=== PATIENT | male | born 1930 | race Caucasian/White ===

== ENCOUNTER 2016-06-13 04:17 | Inpatient (IN) | payer OTHER ==
[2016-06-13] MEDS ORDERED: NS 1,000 ML IV ONE (04:19)
--- NOTE | 2016-06-13 04:24 | EDPHY ---
H & P HPI/ROS: HPI CHIEF COMPLAINT: Stroke alert by EMS HISTORY OF PRESENT ILLNESS: This patient 85-year-old male significant history of AFib, hypertension, on Coumadin, presents emergency room at 4:15 a.m. in the morning for stroke alert. According to EMS his white for woke up noticing that he was not acting normal she noticed that he had a facial droop was not really responding to her and right-sided weakness she called 911. According to EMS the patient was last seen normal at 8:30 p.m. since that time she has not seen in noticed approximately 15 minutes ago that he was not normal. Upon arrival here to the emergency room this patient has an obvious right-sided weakness, left-sided gave his preference, and left-sided facial droop. Upon arrival here in emergency room the patient's NIH stroke scale is 18 The history is somewhat limited at this time history comes from EMS however the patient is aphasic and cannot participate in history. Past Medical History: Hypertension, AFib, on Coumadin, CVA Past Surgical History: Unknown at this time Social History: Lives locally Family History: ROS REVIEW OF SYSTEMS: A comprehensive 10 point review of systems is otherwise negative aside from elements mentioned in the history of present illness. Exam Constitutional triage nursing summary reviewed, vital signs reviewed, awake/ alert. left-sided gaze preference, Eyes normal conjunctivae and sclera, EOMI, PERRLA. HENT normal inspection, atraumatic, moist mucus membranes, no epistaxis, neck supple/ no meningismus, no raccoon eyes. Respiratory clear to auscultation bilaterally, normal breath sounds, no respiratory distress, no wheezing. Cardiovascular rate normal, regular rhythm, no murmur, no edema, distal pulses normal. Gastrointestinal soft, non-tender, no rebound, no guarding, normal bowel sounds, no distension, no pulsatile mass. Genitourinary no CVA tenderness. Musculoskeletal no midline vertebral tenderness, full range of motion, no calf swelling, no tenderness of extremities, no meningismus, good pulses, neurovascularly intact. Skin pink, warm, & dry, no rash, skin atraumatic. Neurologic neurological exam shows that he is awake, he has a left-sided gaze preference, left-sided facial droop, right-sided hemiparesis upper and lower extremity paresis Psychiatric normal mood/affect. Heme/Lymph/Immune no lymphadenopathy. Differential Diagnosis: This includes but is not limited to in a particular order, MCA stroke, acute stroke, intraparenchymal bleed, seizure Medical Decision Making: This patient will will go to CT to have a CT scan of his head to rule out significant intraparenchymal bleed this patient is most likely not a tPA candidate due to him being on Coumadin, and last seen normal at 830PM this is outside the window of TPA. I will touch base with Neurology. Re-evaluation: 0437: CT scan of the head without IV contrast The results of the study are multiple strokes visualize, multiple watershed injuries, no acute bleed or visualization of acute stroke at this time. The study was read by Dr. Cerna. I viewed the images myself on the PACS system. 0437: Patient re-evaluated this time still has right-sided deficits, left- sided facial droop. The has showed up in the ER at this time she does tell me that he was last seen normal at 8:30 p.m. he is on Coumadin. she noticed that he was acting abnormal due to abnormal respirations approximately half an hour ago. That is what prompted to wake her up and evaluate him and called 911. 0452: I spoke with [facility] Dr. Anisa Beltrán, she feels that this patient should have a CT angiogram head and neck if the family wants to be aggressive with care. As it may be a large vessel occlusion. I did speak at length with the at bedside she is unsure if she wants to be aggressive in his care she is unsure if she wants him transferred to [facility]. She would like to speak with the neurologist I told her that we will proceed with a CT angiogram head and neck to see if there is a large vessel occlusion and I will have Neurology speak with her. She is agreeable to this EKG interpretation by me on record in [employer] system. Impression time of EKG 4:43 a.m., this is AFib rate of [address] depression in lead V4 V5 V6 also V2 V3 right bundle branch block present. 0517: Family at bedside specifically is still deciding if she wants to go to [facility]. Patient is back from CT angiogram of his head and neck. Neurology from [place] Dr. Beltrán is talking to them. 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 0523: CT scan of the angiogram head and neck. The results of the study are shows a large occlusion left internal carotid artery to the left MCA base of it The study was read by Dr. Cerna I viewed the images myself on the PACS system. 0541: After a great discussion with the patient's family specifically the they decided to not undergo any aggressive treatment. They agree for admission he has a very large stroke. They do not want him transferred to [facility] they do not want any aggressive intervention of this large thrombotic stroke. They understand that by not having aggressive treatment of possible intra-arterial tPA that most likely given how big this stroke is he will have a bad outcome most likely this significant stroke leading to . They understand this. 0554: did speak with the hospitalist service Dr. Winslow agrees to admit this patient. Patient be admitted to a med/sx room/neuro. Per He is a DNR, no aggressive measures. Source: EMS Constitutional: Initial Vital Signs Temperature (C) 36.5 C 06/13/16 04:32 Heart Rate 79 06/13/16 04:32 Respiratory Rate 16 06/13/16 04:32 Blood Pressure 187/115 H 06/13/16 04:32 O2 Sat (%) 93 06/13/16 04:32 O2 Delivery Mode Nasal Cannula O2 (L/minute) 2 Allergies/Adverse Reactions: No Known Allergies Allergy (Unverified 06/13/16 04:43) Home Medications: Medication Instructions Recorded Ascorbic Acid [Vitamin C 500 mg 1,000 mg PO BID 06/13/16 (*)] Aspirin [Aspirin 81mg (*)] 81 mg PO DAILY 06/13/16 Atenolol [Tenormin 25 mg (*)] 25 mg PO HS 06/13/16 Atorvastatin Calcium [Lipitor 40 40 mg PO HS 06/13/16 mg (*)] Azelaic Acid [Finacea] 1 gm TP BID 06/13/16 Finasteride [Proscar 5 MG (*)] 5 mg PO HS 06/13/16 Glucosamine/Chondroitin 1 each PO BID 06/13/16 [Glucosamine/Chondroitin (*)] Isosorbide Mononitrate [Isosorbide 30 mg PO DAILY 06/13/16 Mononitrate 20 mg (*)] Lisinopril [Zestril 20 mg (*)] 20 mg PO DAILY 06/13/16 Nitroglycerin [Nitrostat 0.4 mg 0.4 mg SL Q5M PRN 06/13/16 (*)] Omeprazole [Prilosec 20 mg] 40 mg PO DAILY 06/13/16 Warfarin Sodium [Coumadin 2.5MG 2.5 mg PO DAILY16 06/13/16 (*)] traZODone [traZODONE 50MG (*)] 50 mg PO HS 06/13/16 Medical Decision Making - Data Points Laboratory Results: Laboratory Results 06/13/16 04:35 06/13/16 04:35 Medications Given: Discontinued Medications Sodium Chloride (Ns) 1,000 mls @ 500 mls/hr IV EDNOW ONE Stop: 06/13/16 06:18 Last Admin: 06/13/16 04:47 Dose: 1,000 mls Departure - Departure Disposition: [facility] Inpatient Acute Clinical Impression: Acute ischemic stroke Condition: Critical
[2016-06-13] MEDS ORDERED: IOPAMIDOL (ISOVUE 370) 100 ML BTL IV ONE (04:28)
--- NOTE | 2016-06-13 04:47 | CPEKG ---
Heart Rate: 80 RR Interval: 750 QRSD Interval: 138 QT Interval: 428 QTC Interval: 494 QRS Callao: 84 T Wave Callao: -36 EKG Severity - ABNORMAL ECG - EKG Impression: ATRIAL FIBRILLATION, V-RATE 66-90 EKG Impression: RIGHT BUNDLE BRANCH BLOCK EKG Impression: BORDERLINE ST DEPRESSION, LATERAL LEADS Electronically Signed By: Cleve Ribeiro 13-Jun-2016 06:53:10
[2016-06-13 04:51] LABS: % IMMATURE GRANULYOCYTES 0.7 % (0.0-1.1); ABSOLUTE IMMATURE GRANULOCYTES 0.08 10^3/uL (0.00-0.10); ADD DIFF? NO; ADD MORPH? NO; ADD SCAN? NO; ATYPICAL LYMPHOCYTE FLAG 0 (0-99); FRAGMENT RBC FLAG 0 (0-99); HEMATOCRIT 39.3 % (40.0-51.0); HEMOGLOBIN 13.7 g/dL (13.7-17.5); LEFT SHIFT FLG 0 (0-99); LIPEMIA HEMOLYSIS FLAG 90 (0-99); MEAN CELL HEMOGLOBIN 32.1 pg (27.9-34.1); MEAN CELL HEMOGLOBIN CONCENTR. 34.9 g/dL (32.4-36.7); PLATELET CLUMPS FLAG 0 (0-99); PLATELET COUNT 162 10^3/uL (150-400); RED BLOOD CELL COUNT 4.27 10^6/uL (4.40-6.38); RED CELL DISTRIBUTION WIDTH 13.9 % (11.5-15.2)
[2016-06-13 04:58] LABS: INR 2.08 (0.83-1.16); PROTIME(PATIENT) 23.5 SEC (12.0-15.0)
[2016-06-13 04:59] LABS: APTT 29.1 SEC (23.0-38.0)
[2016-06-13 05:05] LABS: ANION GAP 9 mEq/L (8-16); CALCIUM 9.1 mg/dL (8.5-10.4); CARBON DIOXIDE 20 mEq/l (22-31); CHLORIDE 99 mEq/L (97-110); CREATININE 0.9 mg/dL (0.7-1.3); GLOMERULAR FILTRATION RATE > 60; GLUCOSE 113 mg/dL (70-100); POTASSIUM 4.5 mEq/L (3.5-5.2); SODIUM 128 mEq/L (134-144)
[2016-06-13 05:16] LABS: TROPONIN I 0.015 ng/mL (0-0.034)
--- NOTE | 2016-06-13 06:19 | PDGENHP ---
History and Physical - Chief Complaint hemiparesis - History of Present Illness Patient is 85/M with CAD, HLD, HTN, Afib on coumadin who was brought in to the ED by EMS as a stroke alert for new onset R hemiparesis. History obtained from patient's . Patient was last seen well at around 830pm, when he and his went to bed. At approximately 400am, patient's heard him gurgling/ having difficulty breathing, so she went into his room. She found pt unresponsive, unable to open his eyes, move his R side and with a significant R facial droop. She immediately called EMS and he was brought in to the ED. She denies any recent fevers/chills, SO, dizziness, CP, palpitations, abd pain, n/v/ d. Yesterday, patient was reported to be in his usual state of health, independent in all ADLs. On arrival to the ED patient was afebrile, hypertensive. His exam was significant for expressive aphasia, R hemiparesis and L facial droop. CT head did not reveal acute bleed. [facility] was consulted, patient was deemed not a tPA candidate due to arrival outside the window and patient on chronic coumadin. CT angio head/neck was then obtained and revealed complete L ICA occlusion with acute L M1/M2 filling defects. Family discussion by the ED physician indicated that they understood the severity of his acute infarct, the poor prognosis this portends and opted to avoid any aggressive or invasive treatments. History Information - Allergies/Home Medication List Allergies/Adverse Reactions: No Known Allergies Allergy (Unverified 06/13/16 04:43) Home Medications: Ascorbic Acid 06/13/16 [Last Taken Unknown] Aspirin 81mg (*) 06/13/16 [Last Taken Unknown] Atenolol 06/13/16 [Last Taken Unknown] Atorvastatin Calcium 06/13/16 [Last Taken Unknown] Azelaic Acid 06/13/16 [Last Taken Unknown] Finasteride 06/13/16 [Last Taken Unknown] Glucosamine 06/13/16 [Last Taken Unknown] Isosorbide Mononitrate 06/13/16 [Last Taken Unknown] Lisinopril 06/13/16 [Last Taken Unknown] Nitroglycerin 06/13/16 [Last Taken Unknown] Omeprazole 06/13/16 [Last Taken Unknown] Warfarin Sodium 06/13/16 [Last Taken Unknown] traZODone 06/13/16 [Last Taken Unknown] I have personally reviewed and updated: family history, medical history, social history, surgical history - Past Medical History Additional medical history: atrial fibrillation. HTN. HLD. CAD s/p PCI x 1. BPH. GERD. OA - Surgical History Reports: hernia repair - Family History Positive for: non-pertinent - Social History Smoking Status: Former smoker (distant history of smoking) Alcohol Use: None Drug Use: None Additional social history: Patient lives with , was completely independent in all ADLs. Review of Systems ROS: 10pt was reviewed & negative except for what was stated in HPI & below Physical Exam Temp Pulse Resp BP Pulse Ox 36.5 C 84 16 183/99 H 99 06/13/16 04:32 06/13/16 05:00 06/13/16 05:00 06/13/16 05:00 06/13/16 05:00 Constitutional: other (hemiparesis, aphasic) Eyes: anicteric sclera Ears, Nose, Mouth, Throat: moist mucous membranes, hearing normal, ears appear normal, no oral mucosal ulcers Cardiovascular: regular rate and rhythym, no murmur, rub, or gallop, pulses symmetric bilaterally, No JVD, No edema Peripheral Pulses: 1+: dorsalis-pedis (R), dorsalis-pedis (L) Respiratory: rhonchi (b/l) Gastrointestinal: soft, non-tender abdomen, no palpable masses, tenderness Genitourinary: no bladder fullness, no bladder tenderness Skin: other (chronic arterial insufficiency skin changes in b/l lower extremities) Neurologic: other (complete expressive aphasia, able to follow simple commands and track with b/l EOM; L facial droop; R strength 2/5 in upper and lower extremities with upward going babinski; L UE LE strength intact) Lab Data & Imaging Review 06/13/16 04:35 06/13/16 04:35 WBC 11.14 10^3/uL (3.80-9.50) H 06/13/16 04:35 RBC 4.27 10^6/uL (4.40-6.38) L 06/13/16 04:35 Hgb 13.7 g/dL (13.7-17.5) 06/13/16 04:35 POC Hgb 15.0 gm/dL (14.5-17.3) 06/13/16 04:31 Hct 39.3 % (40.0-51.0) L 06/13/16 04:35 POC Hct 44 % (42.8-50.6) 06/13/16 04:31 MCV 92.0 fL (81.5-99.8) 06/13/16 04:35 MCH 32.1 pg (27.9-34.1) 06/13/16 04:35 MCHC 34.9 g/dL (32.4-36.7) 06/13/16 04:35 RDW 13.9 % (11.5-15.2) 06/13/16 04:35 Plt Count 162 10^3/uL (150-400) 06/13/16 04:35 MPV 10.0 fL (8.7-11.7) 06/13/16 04:35 Neut % (Auto) 75.1 % (39.3-74.2) H 06/13/16 04:35 Lymph % (Auto) 12.7 % (15.0-45.0) L 06/13/16 04:35 [place] % (Auto) 9.6 % (4.5-13.0) 06/13/16 04:35 Eos % (Auto) 1.5 % (0.6-7.6) 06/13/16 04:35 Baso % (Auto) 0.4 % (0.3-1.7) 06/13/16 04:35 Nucleat RBC Rel Count 0.0 % (0.0-0.2) 06/13/16 04:35 Absolute Neuts (auto) 8.35 10^3/uL (1.70-6.50) H 06/13/16 04:35 Absolute Lymphs (auto) 1.42 10^3/uL (1.00-3.00) 06/13/16 04:35 Absolute Monos (auto) 1.07 10^3/uL (0.30-0.80) H 06/13/16 04:35 Absolute Eos (auto) 0.17 10^3/uL (0.03-0.40) 06/13/16 04:35 Absolute Basos (auto) 0.05 10^3/uL (0.02-0.10) 06/13/16 04:35 Absolute Nucleated RBC 0.00 10^3/uL (0-0.01) 06/13/16 04:35 Immature Gran % 0.7 % (0.0-1.1) 06/13/16 04:35 Immature Gran # 0.08 10^3/uL (0.00-0.10) 06/13/16 04:35 PT 23.5 SEC (12.0-15.0) H 06/13/16 04:35 INR 2.08 (0.83-1.16) H 06/13/16 04:35 APTT 29.1 SEC (23.0-38.0) 06/13/16 04:35 POC Sodium 131 mEq/L (134-144) L 06/13/16 04:31 Sodium 128 mEq/L (134-144) L 06/13/16 04:35 POC Potassium 4.2 mEq/L (3.3-5.0) 06/13/16 04:31 Potassium 4.5 mEq/L (3.5-5.2) 06/13/16 04:35 POC Chloride 99 mEq/L (96-108) 06/13/16 04:31 Chloride 99 mEq/L (97-110) 06/13/16 04:35 Carbon Dioxide 20 mEq/l (22-31) L 06/13/16 04:35 Anion Gap 9 mEq/L (8-16) 06/13/16 04:35 POC BUN 22 mg/dL (7-23) 06/13/16 04:31 BUN 21 mg/dL (7-23) 06/13/16 04:35 Creatinine 0.9 mg/dL (0.7-1.3) 06/13/16 04:35 POC Creatinine 0.9 mg/dL (0.8-1.5) 06/13/16 04:31 Estimated GFR > 60 06/13/16 04:35 Glucose 113 mg/dL (70-100) H 06/13/16 04:35 POC Glucose 121 mg/dL (70-100) H 06/13/16 04:31 Calcium 9.1 mg/dL (8.5-10.4) 06/13/16 04:35 Troponin I 0.015 ng/mL (0-0.034) 06/13/16 04:35 Visualized and Interpreted Chest x-ray results: Yes Chest X-Ray results: no infiltrate, normal Visualized and Interpreted imaging results: Yes Interpretation: CT head: extensive atrophy and WM disease; no hemorrhage. CT angio head/necK: complete L ICA occlusion with acute M1/M2 occlusion Visualized and Interpreted EKG results: Yes EKG additional interpertation: atrial fib, rate controlled Assessment & Plan Assessment: Patient 85/M with Afib, HTN, CAD, HLD who presents with acute R hemiparesis, L facial droop and expressive aphasia, found to have acute L MCA occlusion, ischemic infarct. Plan: # acute CVA Patient with an extensive acute infarct with extensive deficits, arrived outside tPA window and is contraindicated due to on coumadin. Etiology is due to extensively occluded L ICA with acute extension to M1/M2 of L MCA. Family members ( and son) understand the extent of the deficits and the poor prognosis. They would not want any aggressive intervention, have refused NGT placement for med administration, refuse transfer to [facility] for intra-vessel tPA. Will place on aspiration precautions, manage symptoms. Family is still consider benefit of MRI or TTE. Will allow for permissive hypertension. # CAD/Afib/HTN/HLD HR stable, BP elevated, trop negative, EKG without ischemia. INR is currently therapeutic. Family is not inclined toward NGT placement for med administration. # dispo: admit to hospitalist service for > 2 MN stay # gen: NPO DVT ppx: on warfarin, therapeutic INR DNR/DNI, no aggressive interventions
--- NOTE | 2016-06-13 09:11 | CT ---
CT Brain (Without Contrast) History: Right-sided weakness in an 85-year-old male; CVA suspected. Patient has history of remote s trokes.. Technique: Axial computed tomographic images of the brain are obtained from the base to the vertex w ithout contrast. Images are obtained at 5 mm thickness and reformatted at 1.5 mm. Sagittal and lopez l reformations are performed and the study is reviewed at multiple window/level settings. Dose reduct ion techniques were utilized. Findings: Ventricles, cisterns, and sulci are widened consistent with atrophy. There is no hydroceph alus, midline shift/herniation, or epidural/subdural hematoma. No intraparenchymal hemorrhage or mass effect is identified. Hypodensities are noted in the periventricular and subcortical white matter bi laterally. Cortical low attenuation and encephalomalacia are seen in the right frontoparietal and the left parieto-occipital regions consistent with remote cortical ischemia. No definite acute cortical ischemia is seen, although the extent of white matter low attenuation does decrease sensitivity for s ubtle findings of early acute cortical ischemia. Cerebrovascular atherosclerosis is identified. Bone windows demonstrate no displaced fractures. Paranasal sinuses and mastoid air cells are clear. Impression: 1. Elderly brain with atrophy and probable white matter small vessel disease. 2. No definite acute cortical ischemia, although extensive white matter disease diminishes CT sensiti vity. There is CT angiography pending. 3. Negative for hemorrhage. The study was performed as an emergency on-call case and discussed by telephone with Dr. Cleve jacobs at 0440 hours. The final interpretation is concordant with the original communication.
[2016-06-13] MEDS: ASPIRIN RECTAL 300 MG SUPP PR SCH ×2 (10:14→11:52)
--- NOTE | 2016-06-13 10:43 | CT ---
CT Angiography Neck With Contrast CT Angiography Head With Contrast CT Neck Angiography Reason for Examination: Right-sided weakness; suspect CVA. Evaluate for vascular occlusion. Technique: Spiral acquisition was performed from the level of the thoracic inlet to the skull base du ring rapid intravenous administration of 85 mL of Isovue-370. This contrast volume was utilized for e valuation of the neck and head. Images were obtained at 0.6 mm thickness and reviewed on the workstat ion at multiple window/level settings. Sagittal and coronal reformations are performed. Also, a three -dimensional reformation is performed by the radiologist on the workstation. Dose reduction techniqu es were utilized. Findings: There is excellent arterial opacification. The anatomy of the aortic arch is normal. There is complete occlusion of the left internal carotid artery just distal to the carotid bifurcation asso ciated with dense carotid plaque formation at the origin of the left internal carotid artery. The ves shantel is occluded throughout its course to the level of the base of the brain. There is dense plaque fo rmation seen involving the right carotid bifurcation with probable borderline hemodynamically signifi cant stenosis. No areas of abnormal enhancement are seen and no vascular malformations are noted. CT Angiography of the Head With Attention to the [place] of [place]. Technique: A spiral acquisition was performed from the base of the brain to the vertex during rapid i ntravenous administration of 85 mL of Isovue-370. This contrast volume was utilized for evaluation o f the neck and head. Axial images are obtained at 0.6 mm thickness and the examination is reviewed on the workstation in multiple window/level settings. Sagittal and coronal reformats are performed and three-dimensional reformations are performed by the radiologist on the workstation. Dose reduction techniques were utilized. Findings: There is excellent arterial opacification. There is occlusion of the supraclinoid extension of the occluded left internal carotid artery. Additionally, there is nonfilling of the left M1 and M 2 segments of the left middle cerebral artery. There is filling of vessels in the sylvian fissure via collateral flow. IMPRESSION: 1. Occlusion of the left internal carotid artery from just above the level of the left carotid bifurc ation cephalad and involving the supraclinoid carotid as well as left middle cerebral artery. 2. Dense plaque formation and probable borderline hemodynamically significant stenosis of the right i nternal carotid artery. The study was performed as an emergency on-call case and discussed by telephone with Dr. Cleve emanuel at 0520 hours. The final interpretation is concordant with the original communication. Note: All stenoses are calculated using NASCET criteria.
--- NOTE | 2016-06-13 10:46 | DX ---
Portable AP Upright Chest June 13, 2016, 0440 Hours HISTORY: Cerebrovascular accident. FINDINGS: Pulmonary markings are diffusely mildly increased, suggesting prominent interlobular septa. Diagnostic considerations include pulmonary edema and interstitial fibrosis or other interstitial horace ng disease. Heart size is normal given the poor inspiratory depth. No pleural effusion. No pneumothor ax. IMPRESSION: Mildly prominent pulmonary markings. Recommend departmental PA and lateral chest radiogra phs.
--- NOTE | 2016-06-13 11:26 | ECHO ---
[id number] + + [address] : : [place] [address] : : [phone] + + Adult Echocardiographic Report + ---+ :Name: JAMES BARTH EStudy Date: 06/13/2016 08:59 AM : : Hospital Admission Number: [id number] Location: 342: :: 1930 Gender: Male Height: 69 in : :Age: 85 yrs Race: WH Weight: 160 lb : :Reason For Study: Eval for Embolic Source, Bubble Exam : : BSA: 1.9 meters2 : :History: Ischemic Stroke : + ---+ MMode/2D Measurements & Calculations IVSd: 0.76 cm LVIDd: 4.4 cm FS: 49.6 % Ao root diam: 3.6 cm LVPWd: 1.0 cm LVIDs: 2.2 cm EDV(Teich): 89.4 ml ACS: 1.7 cm ESV(Teich): 16.9 ml EF(Teich): 81.1 % Normal Measurement Values: + + :LVIDd (3.5-5.7cm) IVSd (0.6-1.1cm) LVPWd (0.6-1.1cm) Aortic Root (2.0-3.7cm)Left Atrium (1.5-4.0cm): :LV Vol(d) (76-115ml) LV Vol(s) (29-48ml) Ejec Fraction (50-65%)PV Albino (0.6- 1.2m/s) TV Albino (0.4-1.0m/s) : :MV E Albino (0.8-1.0m/s)MV A Albino (0.3-1.0m/s)LVOT Albino (0.7-1.2m/s) Asc Ao Albino ( 0.9-1.8m/s) : + + Doppler Measurements & Calculations MV E max albino: Ao V2 max: LV V1 max: PA V2 max: 88.8 cm/sec 122.2 cm/sec 96.3 cm/sec 112.7 cm/sec Ao max PG: LV V1 max PG: PA max P.0 mmHg 3.7 mmHg 5.1 mmHg TR max albino: 357.0 cm/sec TR max P.0 mmHg RAP systole: 5.0 mmHg RVSP(TR): 56.0 mmHg Left Ventricle The left ventricle is normal in size. There is normal left ventricular wall thickness. The left ventricular ejection fraction is normal. There is Doppler evidence for diastolic dysfunction. The thythm is atrial fibrillation. Ejection Fraction = 81%. No regional wall motion abnormalities noted. Right Ventricle The right ventricle is normal in size and function. Atria The left atrium is moderately dilated. The right atrium is moderately dilated. Injection of contrast documented no interatrial shunt. The interatrial septum is intact with no evidence for an atrial septal defect. Mitral Valve There is mild mitral annular calcification. There is no mitral valve stenosis. There is mild mitral regurgitation. Tricuspid Valve Normal tricuspid valve. There is mild to moderate tricuspid regurgitation. Right ventricular systolic pressure is 56mmHg. Aortic Valve Mild Aortic Valve Calcification. There is no aortic stenosis. There is no aortic insufficiency. Pulmonic Valve The pulmonic valve is normal in structure and function. There is no pulmonic valvular regurgitation. Great Vessels The aortic root is normal size. Pericardium/Pleural There is no pericardial effusion. Conclusion A complete two-dimensional transthoracic echocardiogram was performed (2D, M-mode, Doppler and color flow Doppler). The left ventricular ejection fraction is normal. There is Doppler evidence for diastolic dysfunction. The thythm is atrial fibrillation. Ejection Fraction = 81%. The left atrium is moderately dilated. The right atrium is moderately dilated. There is mild mitral annular calcification. There is mild mitral regurgitation. Injection of contrast documented no interatrial shunt. The interatrial septum is intact with no evidence for an atrial septal defect. There is mild to moderate tricuspid regurgitation. Right ventricular systolic pressure is 56mmHg. Mild Aortic Valve Calcification There is no pericardial effusion. Final Reading Physician: Danni Coleman signed on 06/13/2016 11:24 AM Ordering Physician: Cara Winslow Performed By: Eddie Loco, CS
[2016-06-13 12:30] LABS: TROPONIN I 0.016 ng/mL (0-0.034)
--- NOTE | 2016-06-13 12:46 | GCON ---
[f rep st] CONSULTATION NEUROLOGIC CONSULTATION. REFERRING PHYSICIAN: Cara Winslow MD HISTORY: The patient is an 85-year-old gentleman who I am asked to see in neurologic consultation re garding acute stroke. He was at a stable baseline when he went to bed last night around 8:30, and th en around 3:00 or 3:30 in the morning his heard him making sounds that sounded like he was gurgl ing a bit. She went and checked on him and she could immediately tell that something was wrong. He was very resistant to being rolled to his side, but he was noncommunicative. She called 911 and he w as brought to the emergency room with a stroke concern. When he came to the emergency department, he had a head CT that showed evidence of evolving infarctions in the right frontal region, as well as l eft parieto-occipital suspicious for watershed distributions. He had CT angiogram showing complete o cclusion of the left internal carotid artery extending into the middle cerebral artery M1 and M2 segm ents. There was a detailed discussion with the family about the situation and they chose to keep him at the hospital and provide comfort and support as opposed to transferring him to [facility] for any in tervention. The patient has been on the floor over the last few hours and I had a good discussion with all of his family this morning. His says that when he had his episode in March he went to [facility] and was suspected to have TIA. He had improved and really was about back to his baseline when this event occurred. She says he has made it clear that he would not want to live in a situati on like this and did not want any intubation or other procedures done to him should he ever get to [facility]. Therefore, they were wanting to do comfort measures only. The patient is currently not ab le to communicate effectively to provide any history, although he is able to hear my voice and follow commands, and I will detail the exam below. He has not been recently ill. REVIEW OF SYSTEMS: A 10-point review of systems is unremarkable except for the recent TIA. PAST MEDICAL HISTORY: He has a history of hypertension and atrial fibrillation for which he is on an ticoagulation, and his INR was therapeutic at 2 when he came to the hospital. He has history of james nary disease with stenting, BPH, reflux and osteoarthritis. History of hernia repair. FAMILY HISTORY: Noncontributory. SOCIAL HISTORY: He has a history of smoking in the distant past. No alcohol or drug use. He lived independently with his until this event. MEDICATIONS ON ADMISSION: Vitamins C, aspirin 81 mg daily, atenolol, atorvastatin, azelaic acid, fin asteride, glucosamine, isosorbide mononitrate, lisinopril, nitroglycerin, omeprazole, Coumadin and tr azodone. ALLERGIES: No known drug allergies. PHYSICAL EXAMINATION: VITAL SIGNS: The blood pressure when he initially presented to the emergency room at 4:30 a.m. was 187/115, and is now 156/93 with a pulse of 79, respirations 18, temperature 36. 9. GENERAL: He is a well-developed older man, lying in the bed with his eyes closed and a little bi t restless. EYES: Clear. NECK: Supple with no bruits or masses. CARDIAC: Regular rate and rhyth m. No murmur. EXTREMITIES: No cyanosis or edema. Pulses 2+. NEUROLOGIC: He is lethargic with ey es closed but will follow some commands. He attempts to open his eyes and can partially open his eye s on an unsustained basis. He will follow some of my commands to lift the left arm, actually could s tick up 2 fingers request in the left arm and wiggle his toes except on the right side. His language is completely absent with no vocalizations. I cannot reliably assess his memory. Concentration and attention are reduced. General fund of knowledge also cannot be assessed at this time. As mentione d, he can follow some basic commands and seems to understand some voice and seems to recognize family by their voices. Pupils are 1 mm and reactive. Visual crenshaw cannot be adequately assessed with hi s degree of altered awareness. There is a left gaze preference. For the most part, there are conjug ate eye movements. The fundi cannot be viewed due to a small aperture of his pupil. He has severe r ight lower facial weakness. He is nonverbal so I cannot assess his dysarthria. Decreased gag reflex . He does not protrude his tongue to command. There is no definitive weakness assessable at the lulu rnocleidomastoid or trapezius muscles. The motor examination reveals increased tone in the right upp er extremity and a little bit in the right lower extremity, with no spontaneous movements. There is some reflexive movement with a triple flexion response to stimulation of the right plantar surface. He has some relative hyperreflexia on the right. The power on the left side seems to be normal. The re is not a withdrawal response to pain or clear recognition of pain based on any clear grimace when I touch the right side. No ataxic movements in the left upper extremity. Right upper extremity is n ot moving at all. I directly reviewed his head CT and CT angiograms of the head and neck. As mentioned, head CT shows atrophy and white matter change, but there are areas of ischemia seen in the left parieto-occipital r egion as well as the right frontal lobe. The CT angiogram of the neck showed a complete occlusion in the left internal carotid artery just after the bifurcation, which extends into the middle cerebral artery up to M2. LABORATORY STUDIES: Showing white count of 11,000. INR of 2. Mild hyponatremia with sodium of 128. IMPRESSION: The patient has experienced an acute ischemic stroke due to occlusion of left internal c arotid artery presumably from an embolic source. Given the extent of clot present and has evidence o f ischemic changes in the right frontal lobe and left parieto-occipital region which may be old or ne w. The patient did have echocardiogram this morning showing good ejection fraction. No ASD document ed. There is atrial fibrillation present. The patient has suffered a severe stroke in the left carotid territory and has ischemic changes in th e right frontal lobe and left parieto-occipital which may represent subacute changes or be older than that. It is hard to know for sure. He had an apparent transient ischemic attack in March and wa s managed at [facility] where he is normally followed by [facility]. His current NIH stroke scale is 25. His prognosis is very poor for meaningful recovery. I agree with the family's decision for com fort measures at this point, and we will plan to refer her to [facility] for hospice care. I have had a discussion with Dr. Bree Field, who is the hospitalist currently covering. 55 minutes were spent in total unit time on his case. /[id number]/MODL
--- NOTE | 2016-06-13 16:46 | HOSPPROG ---
Hospitalist Progress Note Assessment/Plan: Pt new to my care today. Reviewed chart, imaging and discussed case with Neurologist. CVA of left ICA and M1, M2 distribution of left MCA - Possibly embolic in origin. NIH stroke scale 25. Pt unable to speak, eat or walk. Family declined option to transfer to [facility]. They will have a hospice consult today and continue to consider goals of care. Appreciate neurology consult. Prognosis is poor. DNR Objective: Vital Signs Temp Pulse Resp BP Pulse Ox 36.9 C 78 18 154/86 H 97 06/13/16 07:41 06/13/16 16:06 06/13/16 16:06 06/13/16 16:06 06/13/16 16:06 06/12/16 06/13/16 06/14/16 05:59 05:59 05:59 Intake Total 1000 Balance 1000 PT 23.5 SEC (12.0-15.0) H 06/13/16 04:35 INR 2.08 (0.83-1.16) H 06/13/16 04:35 ICD10 Worksheet Patient Problems: Problems Problem Status Diagnosed Acute ischemic stroke Acute
[2016-06-13 19:32] LABS: TROPONIN I 0.022 ng/mL (0-0.034)
[2016-06-14 05:48] LABS: CHOLESTEROL 92 mg/dL (140-220); CHOLESTEROL/HDL RATIO 1.84 RATIO (1.00-4.97); HIGH DENSITY LIPOPROTEIN 50 mg/dL (40-65); LDL/HDL RATIO 0.68 RATIO (1.00-3.64); LOW DENSITY LIPOPROTEIN 34 mg/dL (80-100); NON-HIGH DENSITY LIPOPROTEIN 42 mg/dL (90-129); TRIGLYCERIDE 44 mg/dL (40-150); VERY LOW DENSITY LIPOPROTEINS 8 mg/dL (8-25)
[2016-06-14] MEDS: NS 1,000 ML IV SCH ×2 (10:00→21:03)
[2016-06-14] MEDS: ASPIRIN RECTAL 300 MG SUPP PR SCH (10:20)
--- NOTE | 2016-06-14 17:52 | HOSPPROG ---
Hospitalist Progress Note Assessment/Plan: CVA of left ICA and M1, M2 distribution of left MCA - Possibly embolic in origin. NIH stroke scale 25. Pt unable to speak, eat or walk, though he is responsive. Family declined option to transfer to [place], which was recommended upon initial diagnosis. They had a hospice consult yesterday, but now having 2nd thoughts. She has considered a feeding tube. She wants him to continue on IVF hydration for now. Continue rectal ASA, prn tylenol. Palliative care consult requested today and very appreciative of Ju[place]'s help at the end of the day. Will set up PC conference for Friday to continue to address goals of care. Family arriving today. DNR Dispo TBD - possibly SNF for rehab vs hospice vs home with hospice Subjective: Pt responsive to verbal stimuli, but unable to speak. He has difficulty managing his secretions. Remains NPO. No fevers. Objective: Vital Signs Temp Pulse Resp BP Pulse Ox 37.3 C 81 20 168/88 H 97 06/14/16 16:00 06/14/16 16:00 06/14/16 16:00 06/14/16 16:00 06/14/16 16:00 06/13/16 06/14/16 06/15/16 05:59 05:59 05:59 Intake Total 1000 Output Total 300 Balance 700 PT 23.5 SEC (12.0-15.0) H 06/13/16 04:35 INR 2.08 (0.83-1.16) H 06/13/16 04:35 - Physical Exam Constitutional: no apparent distress Eyes: PERRL Cardiovascular: regular rate and rhythym Respiratory: no respiratory distress Skin: warm Neurologic: other (dense right sided hemiparesis and facial droop, aphasic) ICD10 Worksheet Patient Problems: Problems Problem Status Diagnosed Acute ischemic stroke Acute
[2016-06-14] MEDS: ACETAMINOPHEN 650 MG SUPP PR PRN (21:03)
[2016-06-15] MEDS: ACETAMINOPHEN 650 MG SUPP PR PRN ×3 (04:06→22:05)
[2016-06-15] MEDS: NS 1,000 ML IV SCH ×2 (09:32→22:06)
[2016-06-15] MEDS: ASPIRIN RECTAL 300 MG SUPP PR SCH (09:32)
--- NOTE | 2016-06-15 17:10 | HOSPPROG ---
Hospitalist Progress Note Assessment/Plan: CVA of left ICA and M1, M2 distribution of left MCA - Possibly embolic in origin. NIH stroke scale 25. Pt unable to speak, eat or walk, and is less responsive today. Family has processed all options, met with media marketing coordinator from palliative care team last night. , Donya, now confident in her decision to proceed with hospice. Will initiate comfort care at this time. wishes to continue IVF's one more day, to which I'm agreeable. DNR Dispo TBD - SNF on hospice, [facility] pt, CM working on options Subjective: Pt mostly unresponsive, has periods of more responsiveness. Objective: Vital Signs Temp Pulse Resp BP Pulse Ox 36.6 C 73 18 158/100 H 97 06/15/16 16:00 06/15/16 16:00 06/15/16 16:00 06/15/16 16:00 06/15/16 16:00 06/14/16 06/15/16 06/16/16 05:59 05:59 05:59 Intake Total 1000 1800 0 Output Total 300 Balance 700 1800 0 PT 23.5 SEC (12.0-15.0) H 06/13/16 04:35 INR 2.08 (0.83-1.16) H 06/13/16 04:35 - Physical Exam Cardiovascular: regular rate and rhythym Respiratory: no respiratory distress Neurologic: other (dense right hemiparesis and facial droop persist) ICD10 Worksheet Patient Problems: Problems Problem Status Diagnosed Acute ischemic stroke Acute
[2016-06-15] MEDS ORDERED: HALOPERIDOL LACT 5 MG/ML INJ IVP PRN (17:12)
[2016-06-15] MEDS ORDERED: GLYCOPYRROLATE 0.2 MG/1 ML VIAL IVP/IM PRN (17:12)
[2016-06-15] MEDS ORDERED: ONDANSETRON 4 MG/2 ML VIAL IVP PRN (17:12)
[2016-06-16] MEDS: ACETAMINOPHEN 650 MG SUPP PR PRN ×3 (04:48→17:06)
[2016-06-16] MEDS: ATROPINE 1% 5 ML OPHT.BTL SL PRN ×3 (10:00→21:03)
[2016-06-16] MEDS: morphINE 10 MG/0.5 ML UDSYR PO PRN (10:02)
[2016-06-16] MEDS: NS 1,000 ML IV SCH ×2 (10:19→21:01)
[2016-06-16] MEDS: LORazepam 2 MG/ML INJ IVP PRN ×2 (13:56→21:02)
--- NOTE | 2016-06-16 14:46 | HOSPPROG ---
Hospitalist Progress Note Assessment/Plan: CVA of left ICA and M1, M2 distribution of left MCA - Possibly embolic in origin. NIH stroke scale 25. Pt unable to speak, eat or walk, and is less responsive today. Family has processed all options, met with pharmacy care coordinator from palliative care team. , Donya, now confident in her decision to proceed with hospice. Now on comfort care. Will dc IVF's today. DNR Dispo TBD - SNF on hospice, [place] pt, CM working on options Subjective: Pt resting comfortably. Has had some coughing spells, grew agitated , given ativan. Appears peaceful now. Objective: Vital Signs Temp Pulse Resp BP Pulse Ox 37.3 C 87 14 160/89 H 90 L 06/16/16 08:00 06/16/16 08:00 06/16/16 08:00 06/16/16 08:00 06/16/16 08:00 06/15/16 06/16/16 06/17/16 05:59 05:59 05:59 Intake Total 1800 900 Balance 1800 900 PT 23.5 SEC (12.0-15.0) H 06/13/16 04:35 INR 2.08 (0.83-1.16) H 06/13/16 04:35 - Physical Exam Constitutional: no apparent distress Cardiovascular: regular rate and rhythym Respiratory: no respiratory distress Skin: warm ICD10 Worksheet Patient Problems: Problems Problem Status Diagnosed Acute ischemic stroke Acute
[2016-06-17] MEDS: ATROPINE 1% 5 ML OPHT.BTL SL PRN (03:31)
[2016-06-17] MEDS: LORazepam 2 MG/ML INJ IVP PRN ×2 (03:31→08:36)
--- NOTE | 2016-06-17 09:29 | HOSPPROG ---
Hospitalist Progress Note Assessment/Plan: CVA of left ICA and M1, M2 distribution of left MCA - Comfort care measures. Pt appears to be nearing end of life with some cheynes hall breathing, unresponsive. Will defer transfer to SNF today given declining status. DNR Dispo TBD - Cont comfort care, may pass away here. If stabilizes, will consider transfer to SNF for hospice tomorrow. Subjective: Pt unresponsive, cheynes-hall breathing. Having difficulty with secretions. Objective: Vital Signs Temp Pulse Resp BP Pulse Ox 37.3 C 85 16 163/95 H 93 06/17/16 08:00 06/17/16 08:00 06/17/16 08:00 06/17/16 08:00 06/17/16 08:00 06/16/16 06/17/16 06/18/16 05:59 05:59 05:59 Intake Total 900 900 Balance 900 900 PT 23.5 SEC (12.0-15.0) H 06/13/16 04:35 INR 2.08 (0.83-1.16) H 06/13/16 04:35 - Physical Exam Constitutional: no apparent distress Eyes: PERRL Ears, Nose, Mouth, Throat: moist mucous membranes Cardiovascular: regular rate and rhythym Respiratory: inspiratory crackles, bronchial breath sounds Skin: warm ICD10 Worksheet Patient Problems: Problems Problem Status Diagnosed Acute ischemic stroke Acute
[2016-06-17] MEDS: morphINE 10 MG/0.5 ML UDSYR PO PRN ×2 (11:15→16:52)
--- NOTE | 2016-06-17 12:26 | PDPCPN ---
Palliative Care Progress Note Assessment/Plan: Referring provider: Dr Field Reason for consult: Actively dying Complex medical decision making Symptom control HPI: Pedro Connell is a 85 yo male with PMH a fib on coumadin, HTN, BPH, CAD, and OA admitted to the hospital for right sided weakness and aphasia. Living independently with his Donya at home. On admission CTA with severe left ICA stroke with poor prognosis. Family decided to focus on comfort only and not invasive medical interventions. Family has met with hospice care and feel that Pedro would only want comfort at this time. Pedro seen this AM, was uncomfortable with grunting but with head of bed elevated appears more comfortable. Difficulty with managing secretions overnight received atropine, morphine, and ativan this AM. Assessment: Physical: - Pain: appears comfortable -monitor for non verbal signs of pain - roxanol 5-10mg PO Q2hr PRN or morphine 2.5-5 mg IV Q1hr PRN - PO will last significantly longer and is safe to use even if non responsive - secretions - atropine drops 2 SL Q30min PRN - glycopyrrolate 0.2mg IV Q4hr PRN - elevate head of bed - can also consider scop patch if continuing to need frequent PRN atropine or glycopyrrolate - Dyspnea: - opiates for any respiratory distress as first line - morphine or roxanol as above - Nausea/vomiting: - zofran PRN - haldol PRN Emotional/psychological: Agitation: - haldol 0.5-1mg IV Q2hr PRN - ativan 0.5-2 mg IV Q2hr PRN Advanced Care Planning: Is patient decisional?: no Code Status: DNR POA: Donya is decision maker. Plan: Continue comfort care only. May have to look into [facility] with hospice if prognosis is > 24 hours. Subjective: unable to respond, grunts on occasion Objective: Social History: to Donya. Children in town Medication list reviewed ROS: unable to obtain, pt non responsive Functional assessment: PPS: 30% Functional status: dependent on ADLs, IADLs Vital Signs Temp Pulse Resp BP Pulse Ox 37.3 C 85 16 163/95 H 93 06/17/16 08:00 06/17/16 08:00 06/17/16 08:00 06/17/16 08:00 06/17/16 08:00 06/16/16 06/17/16 06/18/16 05:59 05:59 05:59 Intake Total 900 900 Balance 900 900 PT 23.5 SEC (12.0-15.0) H 06/13/16 04:35 INR 2.08 (0.83-1.16) H 06/13/16 04:35 Physical Exam - Physical Exam General Appearance: no apparent distress, unresponsive Respiratory: No respiratory distress, No accessory muscle use Skin: normal color, warm/dry Extremities: No pedal edema Neuro/Psych: other (did not awaken to commands ) ICD10 Worksheet Patient Problems: Problems Problem Status Diagnosed Acute ischemic stroke Acute
[2016-06-18] MEDS: LORazepam 2 MG/ML INJ IVP PRN (02:26)
[2016-06-18] MEDS: morphINE 10 MG/0.5 ML UDSYR PO PRN ×5 (06:06→23:42)
[2016-06-18] MEDS ORDERED: LORazepam 1 MG/0.5 ML UDSYR PO PRN (12:50)
--- NOTE | 2016-06-18 12:57 | PDIAF ---
- Diagnosis Diagnosis: CVA, terminal event, hospice Code Status: Do Not Resuscitate - Medication Management Discharge Medications: Medications to Continue on Transfer Acetaminophen [Tylenol Rectal] 650 mg WI Q4HRS PRN #90 supp 06/18/16 [Last Taken Unknown] Atropine 1% 2 drops SL Q30M PRN #10 opht.btl 06/18/16 [Last Taken Unknown] morphINE [Roxanol 10 mg/0.5 ml oral soln (*)] 5 - 10 mg PO Q2HRS PRN #20 udsyr 06/18/16 [Last Taken Unknown] Discharge Medications: Refer to the Discharge Home Medication list for PRN reason. - Orders Services needed: Registered Nurse, Certified Boring Machine Set Up Operator Jig Oxygen: prn for comfort Diet Recommendation: other (npo, but sub-lingual roxanol / ativan ok) Diet Texture: None Activity/Weight Bearing Restrictions: re-positioning for comfort Additional: Hospice - Follow Up Care Current Providers and Referrals: ARIANNA GOOD [Primary Care Provider] - As per Instructions
--- NOTE | 2016-06-18 16:04 | PDPCPN ---
Palliative Care Progress Note Assessment/Plan: HPI: Pedro Connell is a 85 yo male with PMH a fib on coumadin, HTN, BPH, CAD, and OA admitted to the hospital for right sided weakness and aphasia. Living independently with his Donya at home. On admission CTA with severe left ICA stroke with poor prognosis. Family decided to focus on comfort only and not invasive medical interventions. Family has met with hospice care and feel that Pedro would only want comfort at this time. Pedro seen this Am, non responsive appears comfortable in no distress. Less audible congestion today. Receiving occasional ativan or morphine for comfort. Met with son Pedro Baker and granddaughter Liza outside of the room. Discussed the medical situation with severe stroke and poor prognosis. Also answered questions about hydration and artificial feeding. The entire family agrees with continued plan of comfort care only. Assessment: Physical: - Pain: appears comfortable -monitor for non verbal signs of pain - roxanol 5-10mg PO Q2hr PRN or morphine 2.5-5 mg IV Q1hr PRN - PO will last significantly longer and is safe to use even if non responsive - secretions - atropine drops 2 SL Q30min PRN - glycopyrrolate 0.2mg IV Q4hr PRN - elevate head of bed - can also consider scop patch if continuing to need frequent PRN atropine or glycopyrrolate - Dyspnea: - opiates for any respiratory distress as first line - morphine or roxanol as above - Nausea/vomiting: - zofran PRN - haldol PRN Emotional/psychological: Agitation: - haldol 0.5-1mg IV Q2hr PRN - ativan 0.5-2 mg IV Q2hr PRN - scheduled ativan 0.5mg PO Q8hr scheduled per family request Advanced Care Planning: Is patient decisional?: no Code Status: DNR POA: Donya is decision maker. Plan: Continue comfort care only. Objective: Vital Signs Temp Pulse Resp BP Pulse Ox 36.2 C 97 24 H 152/106 H 98 06/18/16 15:46 06/18/16 15:46 06/18/16 15:46 06/18/16 15:46 06/18/16 15:46 06/17/16 06/18/16 06/19/16 05:59 05:59 05:59 Intake Total 900 0 Balance 900 0 PT 23.5 SEC (12.0-15.0) H 06/13/16 04:35 INR 2.08 (0.83-1.16) H 06/13/16 04:35 Physical Exam - Physical Exam General Appearance: unresponsive Respiratory: No respiratory distress, No accessory muscle use Skin: normal color, warm/dry Neuro/Psych: other (non responsive) ICD10 Worksheet Patient Problems: Problems Problem Status Diagnosed Acute ischemic stroke Acute
--- NOTE | 2016-06-18 16:05 | HOSPPROG ---
Hospitalist Progress Note Assessment/Plan: CVA of left ICA and M1, M2 distribution of left MCA - Terminal event. Comfort care measures. Pt appears to be nearing end of life with some cheynes hall breathing, intermittently unresponsive. Attempted to transfer to SNF today for hospice, but family resistant. wants him to stay here, aimed to appeal discharge, which was canceled at her request. Discussed with her that ongoing inpt hospital care may not be covered by insurance and she accepts this. Discussed with her use of resources and that he'll receive more focused care with hospice. She expects he may not survive another day and doesn't want to move him today. DNR / comfort care Dispo - Cont comfort care. Re-consider transfer to SNF for hospice tomorrow. Subjective: Pt unresponsive. Objective: Vital Signs Temp Pulse Resp BP Pulse Ox 36.2 C 97 24 H 152/106 H 98 06/18/16 15:46 06/18/16 15:46 06/18/16 15:46 06/18/16 15:46 06/18/16 15:46 06/17/16 06/18/16 06/19/16 05:59 05:59 05:59 Intake Total 900 0 Balance 900 0 PT 23.5 SEC (12.0-15.0) H 06/13/16 04:35 INR 2.08 (0.83-1.16) H 06/13/16 04:35 - Physical Exam Constitutional: not in pain Cardiovascular: regular rate and rhythym Respiratory: no respiratory distress, bronchial breath sounds Skin: warm Neurologic: facial droop, other (dense right hemiparesis, non-verbal, difficulty managing secretions) Psychiatric: encephalopathic ICD10 Worksheet Patient Problems: Problems Problem Status Diagnosed Acute ischemic stroke Acute
[2016-06-18] MEDS: ATROPINE 1% 5 ML OPHT.BTL SL PRN (16:49)
[2016-06-18] MEDS: LORazepam 1 MG/0.5 ML UDSYR PO SCH ×2 (16:59→20:42)
[2016-06-19] MEDS: morphINE 10 MG/0.5 ML UDSYR PO PRN ×4 (02:47→15:02)
[2016-06-19] MEDS: LORazepam 1 MG/0.5 ML UDSYR PO SCH ×2 (05:30→13:42)
[2016-06-19 08:04] VITALS: BP 118/86; PULSE 114; RESP 22; TEMP 98.6; O2SAT 86
--- NOTE | 2016-06-19 10:55 | HOSPPROG ---
Hospitalist Progress Note Assessment/Plan: CVA of left ICA and M1, M2 distribution of left MCA - Terminal event. Comfort care measures. Pt appears to be nearing end of life with some cheynes hall breathing, intermittently unresponsive. DNR / continue with comfort care Dispo - Cont comfort care. Discussed with patients family and case management that transfer for hospice care is appropriate. We will look into the option of inpatient hospice given his agitation. Subjective: Pt unresponsive. Some Agitation. Objective: - Physical Exam Constitutional: not in pain Cardiovascular: regular rate and rhythym Respiratory: no respiratory distress, bronchial breath sounds Skin: warm Neurologic: facial droop, other (dense right hemiparesis, non-verbal, difficulty managing secretions) Psychiatric: encephalopathic Objective: Vital Signs Temp Pulse Resp BP Pulse Ox 37.0 C 114 H 22 H 118/86 H 86 L 06/19/16 08:00 06/19/16 08:00 06/19/16 08:00 06/19/16 08:00 06/19/16 08:00 06/18/16 06/19/16 06/20/16 05:59 05:59 05:59 Intake Total 0 0 Output Total 200 Balance 0 -200 PT 23.5 SEC (12.0-15.0) H 06/13/16 04:35 INR 2.08 (0.83-1.16) H 06/13/16 04:35 ICD10 Worksheet Patient Problems: Problems Problem Status Diagnosed Acute ischemic stroke Acute
--- NOTE | 2016-06-19 14:38 | PDPCPN ---
Palliative Care Progress Note Assessment/Plan: HPI: Pedro Connell is a 85 yo male with PMH a fib on coumadin, HTN, BPH, CAD, and OA admitted to the hospital for right sided weakness and aphasia. Living independently with his Donya at home. On admission CTA with severe left ICA stroke with poor prognosis. Family decided to focus on comfort only and not invasive medical interventions. Family has met with hospice care and feel that Pedro would only want comfort at this time. Pedro seen this am with family present. Appears comfortable occasional grunting. Per family he has a long standing history of sleep apnea at night. Occasional sleep apnea seen on exam. No audible congestion and appears comfortable. On scheduled ativan to help with agitation. Using roxanol PRN for s/s of pain with 20mg used yesterday and 15mg used so far today. Plan is to transfer to [place] with hospice care today. Family is feeling comfortable with this decision. Assessment: Physical: - Pain: appears comfortable -monitor for non verbal signs of pain - roxanol 5-10mg PO Q2hr PRN or morphine 2.5-5 mg IV Q1hr PRN - PO will last significantly longer and is safe to use even if non responsive - secretions - atropine drops 2 SL Q30min PRN - glycopyrrolate 0.2mg IV Q4hr PRN - elevate head of bed - can also consider scop patch if continuing to need frequent PRN atropine or glycopyrrolate - Dyspnea: - opiates for any respiratory distress as first line - morphine or roxanol as above - Nausea/vomiting: - zofran PRN - haldol PRN Emotional/psychological: Agitation: - haldol 0.5-1mg IV Q2hr PRN - ativan 0.5-2 mg IV Q2hr PRN - scheduled ativan 0.5mg PO Q8hr scheduled per family request Advanced Care Planning: Is patient decisional?: no Code Status: DNR POA: Donya is decision maker. Plan: Continue comfort care only. Plan to transfer to [facility] with hospice care today. Subjective: unable to obtain Objective: Vital Signs Temp Pulse Resp BP Pulse Ox 37.0 C 114 H 22 H 118/86 H 86 L 06/19/16 08:00 06/19/16 08:00 06/19/16 08:00 06/19/16 08:00 06/19/16 08:00 06/18/16 06/19/16 06/20/16 05:59 05:59 05:59 Intake Total 0 0 Output Total 200 Balance 0 -200 PT 23.5 SEC (12.0-15.0) H 06/13/16 04:35 INR 2.08 (0.83-1.16) H 06/13/16 04:35 Physical Exam - Physical Exam General Appearance: unresponsive Respiratory: decreased breath sounds, No respiratory distress, No accessory muscle use Skin: normal color, warm/dry Neuro/Psych: other (non responsive) ICD10 Worksheet Patient Problems: Problems Problem Status Diagnosed Acute ischemic stroke Acute
--- NOTE | 2016-06-19 15:56 | PDDCSUM ---
Discharge Summary Discharge Summary: 85 yo male who was admitted and found to have a CVA of left ICA and M1, M2 distribution of left MCA. This was considered a terminal event. Palliative care was consulted. After discussion with the family, it was decided to pursue comfort care and hospice. The patient was seen this morning and I discussed with the pt's the overall prognosis. She is very well aware that this is a terminal event and agrees with transition to SNF with hospice care. DDX: CVA of left ICA and M1, M2 distribution of left MCA. This was considered a terminal event. Exam: altered mentation slight agitation rrr lungs: rhonchi s/nt/nd d/c meds: comfort meds total care time arranging discharge is 35 minutes.
--- NOTE | 2016-06-19 16:56 | PDIAF ---
- Diagnosis Diagnosis: CVA, terminal event, hospice Code Status: Do Not Resuscitate - Medication Management Discharge Medications: Medications to Continue on Transfer Atropine 1% 2 drops SL Q30M PRN #10 opht.btl 06/19/16 [Last Taken Unknown] LORAZEPAM [Ativan] 0.5 mg PO Q2 PRN 06/19/16 [Last Taken Unknown] morphINE [Roxanol 10 mg/0.5 ml oral soln (*)] 5 - 10 mg PO Q2HRS PRN #20 udsyr 06/19/16 [Last Taken Unknown] Discharge Medications: Refer to the Discharge Home Medication list for PRN reason. - Orders Services needed: Registered Nurse, Certified [employer] Faculty Member Oxygen: prn for comfort Diet Recommendation: other Diet Texture: None Activity/Weight Bearing Restrictions: re-positioning for comfort Additional: Hospice - Follow Up Care Current Providers and Referrals: ARIANNA GOOD [Primary Care Provider] - As per Instructions
== END 2016-06-19 15:46 | DRG 65 ==
LOC: EDUNIT# → F3N 07:33
PROVIDERS: ADMIT Internal Medicine; ATTEND Family Medicine
DX: I63.032 Cerebral infarction due to thrombosis of left carotid artery (principal); G81.91 Hemiplegia, unspecified affecting right dominant side; R29.810 Facial weakness; R47.01 Aphasia; I25.10 Atherosclerotic heart disease of native coronary artery without angina pectoris; I10 Essential (primary) hypertension; I48.91 Unspecified atrial fibrillation; N40.0 Benign prostatic hyperplasia without lower urinary tract symptoms; K21.9 Gastro-esophageal reflux disease without esophagitis; Z87.891 Personal history of nicotine dependence; Z95.5 Presence of coronary angioplasty implant and graft; Z79.01 Long term (current) use of anticoagulants; Z66 Do not resuscitate
CPT/HCPCS: 82947-QW; Q9967